=== PATIENT | male | born 1945 | race Caucasian/White ===

== ENCOUNTER 2020-06-11 10:19 | Emergency (ER) | payer MEDICARE, BC ==
[2020-06-11] MEDS ORDERED: Ondansetron 4 MG/2 ML SDV IVPUSH ONE (11:02)
[2020-06-11] MEDS ORDERED: Sodium Chloride 0.9% 10 ML Syringe FLUSH PRN (11:02)
--- NOTE | 2020-06-11 11:05 | EDM.PDOC ---
ED HPI GENERAL MEDICAL PROBLEM - General Chief Complaint: Gastrointestinal Problem Stated Complaint: NO APPETITE X 4 DAYS,COUGH Time Seen by Provider: 06/11/20 10:39 Source of Information: Reports: Patient, Family (), RN Notes Reviewed - History of Present Illness INITIAL COMMENTS - FREE TEXT/NARRATIVE: 75 yr old male that has had cough for about 2-3 months, worse the past 4-5 days. He did have a low grade fever a few days ago. No chest pain or difficulty breathing. He has had markedly decreased appetite the past 4 days or so and just no generally feeling well. Hx of Parkinson's. No abd pain, vomiting or diarrha. - Related Data Allergies Allergy/AdvReac Type Severity Reaction Status Date / Time amoxicillin Allergy Severe Hives Verified 06/11/20 10:46 Home Meds: Home Meds Amantadine [Symmetrel] 100 mg PO BID 06/11/20 [History] Carbidopa/Levodopa [Rytary ER 23.75 mg-95 mg Cap] 2 cap PO TID 06/11/20 [History ] Doxycycline [Vibramycin] 100 mg PO BID #14 tab 06/11/20 [Rx] Hydrocodone/Acetaminophen [Hydrocodone-Acetamin 5-325 mg] 1 tab PO BID PRN 06/11/20 [History] Mecobalamin [B12 Active] 1 tab PO DAILY 06/11/20 [History] Simvastatin [Zocor] 1 tab PO PCDINNER 06/11/20 [History] clonazePAM [Clonazepam] 1 mg PO BEDTIME 06/11/20 [History] traMADol [Ultram] 50 mg PO BID PRN 06/11/20 [History] Social & Family History - Tobacco Use Smoking Status *Q: Never Smoker Second Hand Smoke Exposure: No - Caffeine Use Caffeine Use: Reports: Coffee - Recreational Drug Use Recreational Drug Use: Yes Drug Use in Last 12 Months: Yes Recreational Drug Type: Reports: Marijuana/Hashish Other Recreational Drug Type: Medical Marijuana ED ROS GENERAL - Review of Systems Review Of Systems: See Below Constitutional: Reports: Fever, Chills HEENT: Denies: Rhinitis, Throat Pain Respiratory: Reports: Cough. Denies: Shortness of Breath, Sputum Cardiovascular: Denies: Chest Pain GI/Abdominal: Reports: Decreased Appetite, Nausea. Denies: Abdominal Pain, Diarrhea, Vomiting Musculoskeletal: Reports: No Symptoms Skin: Reports: No Symptoms Neurological: Reports: Weakness (chronic), Other (no acute sx) ED EXAM, GENERAL - Physical Exam Exam: See Below General Appearance: Alert, No Apparent Distress Eye Exam: Bilateral Eye: PERRL Head: Atraumatic Neck: Supple Respiratory/Chest: No Respiratory Distress, Rhonchi (bilat lower lung ijménez) Cardiovascular: Regular Rate, Rhythm GI/Abdominal: Soft, Non-Tender. No: Guarding Extremities: No: Pedal Edema, Leg Pain, Increased Warmth, Redness Neurological: Alert, No Motor/Sensory Deficits Skin Exam: Warm, Dry, Normal Color Course - Vital Signs Last Recorded V/S: Last Vital Signs Temp 97.8 F 06/11/20 10:39 Pulse 80 06/11/20 10:39 Resp 20 06/11/20 10:39 BP 147/85 H 06/11/20 10:39 Pulse Ox 98 06/11/20 10:39 - Orders/Labs/Meds Orders: Active Orders 24 hr Category Date Time Status CORONAVIRUS COVID-19 PCR PHL Stat Lab 06/11/20 12:59 Received CULTURE BLOOD [BC] Stat Lab 06/11/20 11:45 Received Peripheral IV Insertion Adult [OM.PC] Stat Oth 06/11/20 11:02 Ordered Labs: Laboratory Tests 06/11/20 06/11/20 06/11/20 Range/Units 11:00 11:00 11:00 WBC 6.05 (4.23-9.07) K/mm3 RBC 4.52 L (4.63-6.08) M/mm3 Hgb 13.4 L (13.7-17.5) gm/dl Hct 40.3 (40.1-51.0) % MCV 89.2 (79.0-92.2) fl MCH 29.6 (25.7-32.2) pg MCHC 33.3 (32.2-35.5) g/dl RDW Std Deviation 43.3 (35.1-43.9) fL Plt Count 210 (163-337) K/mm3 MPV 10.6 (9.4-12.3) fl Neut % (Auto) 81.3 H (34.0-67.9) % Lymph % (Auto) 7.1 L (21.8-53.1) % Cloud % (Auto) 10.9 (5.3-12.2) % Eos % (Auto) 0.3 L (0.8-7.0) Baso % (Auto) 0.2 (0.1-1.2) % Neut # (Auto) 4.92 (1.78-5.38) K/mm3 Lymph # (Auto) 0.43 L (1.32-3.57) K/mm3 Cloud # (Auto) 0.66 (0.30-0.82) K/mm3 Eos # (Auto) 0.02 L (0.04-0.54) K/mm3 Baso # (Auto) 0.01 (0.01-0.08) K/mm3 Manual Slide Review Abnormal smear D-Dimer, Quantitative (0.19-0.50) mg/L Sodium 135 L (136-145) mEq/L Potassium 3.7 (3.5-5.1) mEq/L Chloride 97 L (98-107) mEq/L Carbon Dioxide 26 (21-32) mEq/L Anion Gap 15.7 H (5-15) BUN 28 H (7-18) mg/dL Creatinine 1.3 (0.7-1.3) mg/dL Est Cr Clr Drug Dosing 42.13 mL/min Estimated GFR (MDRD) 54 (>60) mL/min BUN/Creatinine Ratio 21.5 H (14-18) Glucose 105 (83-115) mg/dL Calcium 9.2 (8.5-10.1) mg/dL Ferritin (26-388) ng/ml Total Bilirubin 0.6 (0.2-1.0) mg/dL AST 18 (15-37) U/L ALT 9 L (16-63) U/L Alkaline Phosphatase 59 (46-116) U/L Lactate Dehydrogenase (85-227) U/L C-Reactive Protein 7.7 H* (<1.0) mg/dL NT-Pro-B Natriuret Pep (0-450) pg/mL Total Protein 7.6 (6.4-8.2) g/dl Albumin 3.2 L (3.4-5.0) g/dl Globulin 4.4 gm/dL Albumin/Globulin Ratio 0.7 L (1-2) 09/07/20 09/07/20 09/07/20 Range/Units 11:00 11:00 11:00 WBC (4.23-9.07) K/mm3 RBC (4.63-6.08) M/mm3 Hgb (13.7-17.5) gm/dl Hct (40.1-51.0) % MCV (79.0-92.2) fl MCH (25.7-32.2) pg MCHC (32.2-35.5) g/dl RDW Std Deviation (35.1-43.9) fL Plt Count (163-337) K/mm3 MPV (9.4-12.3) fl Neut % (Auto) (34.0-67.9) % Lymph % (Auto) (21.8-53.1) % Cloud % (Auto) (5.3-12.2) % Eos % (Auto) (0.8-7.0) Baso % (Auto) (0.1-1.2) % Neut # (Auto) (1.78-5.38) K/mm3 Lymph # (Auto) (1.32-3.57) K/mm3 Cloud # (Auto) (0.30-0.82) K/mm3 Eos # (Auto) (0.04-0.54) K/mm3 Baso # (Auto) (0.01-0.08) K/mm3 Manual Slide Review D-Dimer, Quantitative 0.61 H (0.19-0.50) mg/L Sodium (136-145) mEq/L Potassium (3.5-5.1) mEq/L Chloride (98-107) mEq/L Carbon Dioxide (21-32) mEq/L Anion Gap (5-15) BUN (7-18) mg/dL Creatinine (0.7-1.3) mg/dL Est Cr Clr Drug Dosing mL/min Estimated GFR (MDRD) (>60) mL/min BUN/Creatinine Ratio (14-18) Glucose (83-115) mg/dL Calcium (8.5-10.1) mg/dL Ferritin 712 H (26-388) ng/ml Total Bilirubin (0.2-1.0) mg/dL AST (15-37) U/L ALT (16-63) U/L Alkaline Phosphatase (46-116) U/L Lactate Dehydrogenase 170 (85-227) U/L C-Reactive Protein (<1.0) mg/dL NT-Pro-B Natriuret Pep (0-450) pg/mL Total Protein (6.4-8.2) g/dl Albumin (3.4-5.0) g/dl Globulin gm/dL Albumin/Globulin Ratio (1-2) 06/11/20 Range/Units 11:00 WBC (4.23-9.07) K/mm3 RBC (4.63-6.08) M/mm3 Hgb (13.7-17.5) gm/dl Hct (40.1-51.0) % MCV (79.0-92.2) fl MCH (25.7-32.2) pg MCHC (32.2-35.5) g/dl RDW Std Deviation (35.1-43.9) fL Plt Count (163-337) K/mm3 MPV (9.4-12.3) fl Neut % (Auto) (34.0-67.9) % Lymph % (Auto) (21.8-53.1) % Cloud % (Auto) (5.3-12.2) % Eos % (Auto) (0.8-7.0) Baso % (Auto) (0.1-1.2) % Neut # (Auto) (1.78-5.38) K/mm3 Lymph # (Auto) (1.32-3.57) K/mm3 Cloud # (Auto) (0.30-0.82) K/mm3 Eos # (Auto) (0.04-0.54) K/mm3 Baso # (Auto) (0.01-0.08) K/mm3 Manual Slide Review D-Dimer, Quantitative (0.19-0.50) mg/L Sodium (136-145) mEq/L Potassium (3.5-5.1) mEq/L Chloride (98-107) mEq/L Carbon Dioxide (21-32) mEq/L Anion Gap (5-15) BUN (7-18) mg/dL Creatinine (0.7-1.3) mg/dL Est Cr Clr Drug Dosing mL/min Estimated GFR (MDRD) (>60) mL/min BUN/Creatinine Ratio (14-18) Glucose (83-115) mg/dL Calcium (8.5-10.1) mg/dL Ferritin (26-388) ng/ml Total Bilirubin (0.2-1.0) mg/dL AST (15-37) U/L ALT (16-63) U/L Alkaline Phosphatase (46-116) U/L Lactate Dehydrogenase (85-227) U/L C-Reactive Protein (<1.0) mg/dL NT-Pro-B Natriuret Pep 402 (0-450) pg/mL Total Protein (6.4-8.2) g/dl Albumin (3.4-5.0) g/dl Globulin gm/dL Albumin/Globulin Ratio (1-2) Meds: Medications Discontinued Medications Generic Name Dose Route Start Last Admin Trade Name Freq PRN Reason Stop Dose Admin Sodium Chloride 1,000 mls @ 150 mls/hr 06/11/20 11:15 06/11/20 11:21 Normal Saline IV 150 mls/hr ASDIRECTED KATY Administration Ondansetron HCl 4 mg 06/11/20 11:02 06/11/20 11:22 Zofran IVPUSH 06/11/20 11:03 4 mg ONETIME ONE Administration Sodium Chloride 10 ml 06/11/20 11:02 06/11/20 11:25 Saline Flush FLUSH 10 ml ASDIRECTED PRN Administration Keep Vein Open - Re-Assessments/Exams Free Text/Narrative Re-Assessment/Exam: 06/11/20 15:21 CXT shows some fibrotic changes, hard to say there is not a small infiltrate. Radiologist reports a nodule L lung base. Will do a CT. He and his have been isolating but due to current sx have ordered and covid screen for state has been collected. 06/11/20 16:34. CT shows calcified granulomas L lunb base, mild patchy density bilat, possible pneumonia, see Radiology report for details. Departure - Departure Time of Disposition: 15:11 Disposition: Home, Self-Care 01 Condition: Fair Clinical Impression: Cough, Lung nodule, Decreased appetite - Discharge Information Prescriptions: Doxycycline [Vibramycin] 100 mg PO BID #14 tab Instructions: Cough, Adult, [id number], Pulmonary Nodule, [id number] Referrals: Jay Castro MD [Primary Care Provider] - Forms: ED Department Discharge Additional Instructions: CXR did show a nodule in the L lower lung field. CT of the chest has been done. I will call you the report once that information becomes available later this afternoon. Doxycycline 100 mg twice daily for 1 week. Follow up clinic as planned. Return to ED as needed. Sepsis Event Note (ED) - Evaluation Sepsis Screening Result: No Definite Risk - Focused Exam Vital Signs: Vital Signs Temp Pulse Resp BP Pulse Ox 06/11/20 10:39 97.8 F 80 20 147/85 H 98 - My Orders Last 24 Hours: My Active Orders 06/11/20 11:02 Peripheral IV Insertion Adult [OM.PC] Stat 06/11/20 11:45 CULTURE BLOOD [BC] Stat 06/11/20 12:59 CORONAVIRUS COVID-19 PCR PHL Stat - Assessment/Plan Last 24 Hours: My Active Orders 06/11/20 11:02 Peripheral IV Insertion Adult [OM.PC] Stat 06/11/20 11:45 CULTURE BLOOD [BC] Stat 06/11/20 12:59 CORONAVIRUS COVID-19 PCR PHL Stat
[2020-06-11] MEDS ORDERED: Sodium Chloride 0.9% 1,000 ML IV SCH (11:15)
--- NOTE | 2020-06-11 12:40 | CR ---
Chest: Portable view of the chest was obtained. Comparison: No prior chest imaging is available. Nodule is identified within the left lung base. Basilar change is noted most likely representing chronic fibrosis. Lungs are slightly hyperinflated compatible with emphysematous change. No definite acute parenchymal change is seen. Bony structures are grossly intact. Impression: 1. Nodule within the left lung base. Other findings as noted above. Noncontrast chest CT is recommended to evaluate of the nodule. Diagnostic code #9 This report was dictated in MDT
--- NOTE | 2020-06-11 15:35 | CT ---
Chest CT Technique: Multiple axial sections through the chest were obtained. Intravenous contrast not utilized. Findings: Aorta shows atherosclerotic calcification. Ascending aorta is slightly aneurysmal with AP dimension of 3.8 cm. Descending aorta measures normal at 2.5 cm. Coronary artery calcification is seen. No pericardial thickening is noted. Visualized upper abdominal structures shows no discrete abnormality. No axillary adenopathy is seen. Calcified granuloma is noted within the left lung base. Calcified granuloma is noted next to the left hilar region. Smaller granulomas are also seen within the left lung base. Mild patchy areas of increased density are seen within both sides of the chest. Findings could represent mild areas of pneumonia. Given the multifocal nature, viral infection is is a strong possibility. There is an area of pleural thickening with calcification within the anterior left chest. Bone window settings were reviewed. Compression deformity is noted within the thoracic spine which is most likely old. No definite acute fracture line is seen. Impression: 1. Calcified granulomas within the left lung base. 2. Patchy areas of increased density within both sides of the chest possibly due to pneumonia which is most likely viral given the multifocal nature. 3. Other findings as noted above which are nonacute. Diagnostic code #5 This report was dictated in MDT
== END 2020-06-11 15:25 | disposition home or self-care (01) ==
LOC: JD.ED 10:19
DX: R91.1 Solitary pulmonary nodule (principal); R05 Cough; R63.0 Anorexia; Z88.1 Allergy status to other antibiotic agents; Z79.899 Other long term (current) drug therapy; Z20.828 Contact with and (suspected) exposure to other viral communicable diseases
CPT/HCPCS: 36415; 71045; 71250; 80053; 82728; 83615; 83880; 85025; 85379; 86140; 87040; 96374; 99284; J2405; J7030; U0002

== ENCOUNTER 2021-03-23 17:00 | Emergency (ER) | payer MEDICARE, BC ==
[2021-03-23] MEDS ORDERED: Lidocaine 1% with EPINEPHrine 1:100,000 10 ML MDV INJECT ONE (17:39)
--- NOTE | 2021-03-23 18:16 | EDM.PDOC ---
ED HPI GENERAL MEDICAL PROBLEM - General Chief Complaint: Laceration Stated Complaint: L ARM LAC Time Seen by Provider: 03/23/21 17:07 Source of Information: Reports: Patient, Family History Limitations: Reports: No Limitations - History of Present Illness INITIAL COMMENTS - FREE TEXT/NARRATIVE: The patient was mowing his lawn with a [employer] associate and hit a tree and cut his left forearm. His tetanus was about 7 years ago. He has no other injury. He has thin skin and has a large cut about 8cm and it is jagged. He is not on blood thinners. Onset: Sudden Duration: Minutes: Location: Reports: Upper Extremity, Left Quality: Reports: Sharp Severity: Moderate Improves with: Reports: None Worsens with: Reports: None Associated Symptoms: Reports: No Other Symptoms - Related Data Allergies Allergy/AdvReac Type Severity Reaction Status Date / Time amoxicillin Allergy Severe Hives Verified 06/11/20 10:46 Home Meds: Home Meds Amantadine [Symmetrel] 100 mg PO BID 06/11/20 [History] Carbidopa/Levodopa [Rytary ER 23.75 mg-95 mg Cap] 2 cap PO TID 06/11/20 [History] Hydrocodone/Acetaminophen [Hydrocodone-Acetamin 5-325 mg] 1 tab PO BID PRN 06/11/20 [History] Mecobalamin [B12 Active] 1 tab PO DAILY 06/11/20 [History] Simvastatin [Zocor] 1 tab PO PCDINNER 06/11/20 [History] clonazePAM [Clonazepam] 1 mg PO BEDTIME 06/11/20 [History] Carbidopa/Levodopa [Rytary ER 23.75 mg-95 mg Cap] 2 each PO TID 03/23/21 [History] Past Medical History HEENT History: Reports: Cataract, Impaired Vision Cardiovascular History: Reports: High Cholesterol Genitourinary History: Reports: Renal Calculus Musculoskeletal History: Reports: Fracture Other Musculoskeletal History: Compression fracture in lower back Neurological History: Reports: Neuropathy, Peripheral, Parkinson's Hematologic History: Reports: Other (See Below) Other Hematologic History: Monoclonal gammopathy of undetermined significance (MGUS) - pt is tested yearly - Infectious Disease History Infectious Disease History: Reports: Chicken Pox, Measles - Past Surgical History HEENT Surgical History: Reports: Cataract Surgery, Tonsillectomy GI Surgical History: Reports: Appendectomy Social & Family History - Family History Family Medical History: No Pertinent Family History - Tobacco Use Tobacco Use Status *Q: Never Tobacco User - Caffeine Use Caffeine Use: Reports: Coffee - Recreational Drug Use Recreational Drug Use: No ED ROS GENERAL - Review of Systems Review Of Systems: See Below Constitutional: Reports: No Symptoms HEENT: Reports: No Symptoms Respiratory: Reports: No Symptoms Cardiovascular: Reports: No Symptoms Endocrine: Reports: No Symptoms GI/Abdominal: Reports: No Symptoms : Reports: No Symptoms Musculoskeletal: Reports: Other (left forearm laceration) ED EXAM, SKIN/RASH Exam: See Below Exam Limited By: No Limitations General Appearance: Alert, No Apparent Distress Ears: Normal External Exam Nose: Normal Inspection Head: Atraumatic, Normocephalic Neck: Normal Inspection Respiratory/Chest: No Respiratory Distress Extremities: Other (8cm jagged laceration to the left foream.) ED SKIN PROCEDURES - Laceration/Wound Repair Left Arm Appearance: Subcutaneous, Irregular, Clean Distal NVT: Neuro & Vascular Intact Anesthetic Type: Local Local Anesthesia - Lidocaine (Xylocaine): 1% with EPI Skin Prep: Saline Exploration/Debridement/Repair: Wound Explored, In a Bloodless Field, Explored to Base Closed with: Sutures Lac/Wound length In cm: 8 Suture Size: 4-0 # of Sutures: 15 Suture Type: Nylon, Interrupted, Simple Tetanus Status Addressed: Yes Complications: No Course - Vital Signs Last Recorded V/S: Last Vital Signs Temp 97.5 F 03/23/21 17:09 Pulse 68 03/23/21 17:09 Resp 16 03/23/21 17:09 BP Pulse Ox 97 03/23/21 17:09 - Orders/Labs/Meds Meds: Medications Discontinued Medications Generic Name Dose Route Start Last Admin Trade Name Ora PRN Reason Stop Dose Admin Lidocaine/Epinephrine 10 ml 03/23/21 17:39 03/23/21 17:46 Lidocaine 1% With Epinephrine 1:100,000 10 Ml Mdv INJECT 03/23/21 17:40 10 ml ONETIME ONE Administration - Re-Assessments/Exams Free Text/Narrative Re-Assessment/Exam: 03/23/21 18:17 I used lidocaine with epinephrine and sutures the wound. There was thin skin and it was irregular. There was some skin missing. Departure - Departure Time of Disposition: 18:20 Disposition: Home, Self-Care 01 Condition: Good Clinical Impression: Laceration of left forearm Qualifiers: Encounter type: initial encounter Qualified Code(s): S51.812A - Laceration without foreign body of left forearm, initial encounter - Discharge Information *PRESCRIPTION DRUG MONITORING PROGRAM REVIEWED*: Not Applicable *COPY OF PRESCRIPTION DRUG MONITORING REPORT IN PATIENT DEBORAH: Not Applicable Referrals: Jay Castro MD [Primary Care Provider] - 1 Week Additional Instructions: Clean the wound with warm soapy water 2 times per day and apply antibiotic ointment after. Have the sutures removed in about 8 days. Look for any signs of infection such as redness, swelling, pain or discharge. If you see any of these signs, please return or see your doctor. You may need oral antibiotics. Sepsis Event Note (ED) - Evaluation Sepsis Screening Result: No Definite Risk - Focused Exam Vital Signs: Vital Signs Temp Pulse Resp Pulse Ox 03/23/21 17:09 97.5 F 68 16 97
== END 2021-03-23 18:25 | disposition home or self-care (01) ==
LOC: JD.ED 17:00
DX: S51.812A Laceration without foreign body of left forearm, initial encounter (principal); E78.00 Pure hypercholesterolemia, unspecified; Z88.0 Allergy status to penicillin; Z79.899 Other long term (current) drug therapy; W22.8XXA Striking against or struck by other objects, initial encounter; Y93.I9 Activity, other involving external motion
CPT/HCPCS: 12004; 99282; 99282-25

== ENCOUNTER 2022-02-09 08:59 | Emergency (ER) | payer MEDICARE, BC ==
[2022-02-09] MEDS ORDERED: Aspirin 81 MG Tab.Chew PO ONE (09:11)
[2022-02-09] MEDS ORDERED: Heparin Sodium 5,000 Units/ML Vial IVPUSH ONE (09:17)
[2022-02-09] MEDS ORDERED: Tenecteplase 50 MG Kit IV ONE (09:27)
[2022-02-09] MEDS ORDERED: Heparin Sodium/D5W 25,000 UNITS/500 ML BAG IV SCH (09:30)
[2022-02-09] MEDS ORDERED: Clopidogrel 75 MG Tab PO ONE (09:44)
[2022-02-09] MEDS ORDERED: Phenylephrine 0.5% Nasal Spray 15 ML Bot NASLF ONE (10:52)
[2022-02-09] MEDS ORDERED: Oxymetazoline 0.05% Nasal Spray 30 ML Bottle NAS ONE (10:55)
== END 2022-02-09 11:55 ==
LOC: JD.ED 08:59
DX: I21.3 ST elevation (STEMI) myocardial infarction of unspecified site (principal); E78.00 Pure hypercholesterolemia, unspecified; Z88.0 Allergy status to penicillin; Z79.899 Other long term (current) drug therapy; Z20.822 Contact with and (suspected) exposure to COVID-19
CPT/HCPCS: 36415; 71045; 80053; 84484; 85025; 85610; 92977; 93005; 96365; 96366; 96376; 99291; A9270; J1644; J3101; U0002